=== PATIENT | male | born 1980 | race Caucasian/White ===

== ENCOUNTER 2022-07-05 09:00 | Day surgery (SDC) | payer OTHER ==
[~2022-07-05] VITALS: Ht 174 cm; Wt 101.6 kg
[~2022-07-05 09:00] MED LIST: DICLOFENAC-MIS1 EAC1 PO
== END 2022-07-05 17:05 | disposition home or self-care (01) ==
LOC: CIR.AMB 09:00
PROVIDERS: ATTEND Orthopaedic Surgery Hand Surgery
DX: S63.418A Traumatic rupture of collateral ligament of other finger at metacarpophalangeal and interphalangeal joint, initial encounter (principal); Z87.891 Personal history of nicotine dependence; Z20.822 Contact with and (suspected) exposure to COVID-19